=== PATIENT | female | born 1960 | race Caucasian/White ===

== ENCOUNTER 2016-04-28 16:36 | Emergency (ER) | payer BC, OTHER ==
[~2016-04-28] VITALS: Ht 177.8 cm; Wt 106.8 kg
[~2016-04-28 16:36] MED LIST: CLON0.5T3; DULO60CA6; HYDR28.336; METH4TAB PO
--- NOTE | 2016-04-28 17:08 | ED Back Pain ---
General Chief Complaint: Back Problems Stated Complaint: L SIDE BACK PAIN Source of Information: Patient Exam Limitations: No Limitations History of Present Illness Time Seen by Provider: 17:06 Initial Comments Patient complains of left lower back pain radiating down into buttocks and left groin for 2 days. Symptoms wax and wane in severity. They're worse with certain movements. She denies vomiting. She had some hematuria a few days ago. It is described as a dull ache. Incontinence or fevers. No injury. Allergies and Home Medications Allergies Coded Allergies: No Known Drug Allergies (Verified , 05/26/09) Home Medications Hydrocortisone 28.35 Gm Cream.gm. (Reported) Methylprednisolone 4 Mg/Dose-Pack Tab.ds.pk #1 0 PO UD FOR HIVES Prescribed by: ALICIA BROWER on 07/29/09 1057 Constitutional: no symptoms reported Respiratory: no symptoms reported Cardiovascular: no symptoms reported Genitourinary: hematuria pain Musculoskeletal: back pain All Other Systems Reviewed Negative Unless Noted: Yes Past Kvoqemt-Kjxwpl-Wqufmn Hx Patient Social History Alcohol Use: Occasionally Uses Recreational Drug Use: No Smoking Status: Current Everyday Smoker Type Used: Cigarettes Recent Foreign Travel: No Contact w/Someone Who Travel: No Recent Hopitalizations: No Physical Abuse Screen: No Sexual Abuse: No Surgeries HX Surgeries: Yes (GASTRIC BYPASS) Surgeries: Section, Ear Surgery, Gallbladder Respiratory Hx Respiratory Disorders: No Cardiovascular Hx Cardiac Disorders: No Neurological Hx Neurological Disorders: No Reproductive System Hx Reproductive Disorders: No Genitourinary Hx Genitourinary Disorders: No Gastrointestinal Hx Gastrointestinal Disorders: Yes Musculoskeletal Hx Musculoskeletal Disorders: No Endocrine Hx Endocrine Disorders: No HEENT HX ENT Disorders: No Psychosocial Hx Psychiatric Problems: No Blood Transfusions Hx Blood Disorders: No Reviewed Nursing Assessment Reviewed/Agree w Nursing PMH: Yes Physical Exam Vital Signs Vital Sign - Last 12Hours 04/28/16 17:00 Temp 97.6 Pulse 75 Resp 16 B/P 138/74 Pulse Ox 98 O2 Delivery Room Air Capillary Refill : General Appearance: WD/WN Mild Distress Neck: Supple Cardiovascular: Regular Rate, Rhythm Respiratory: Lungs Clear Gastrointestinal: Soft Back: No CVA Tenderness Other (increased pain with left straight leg raise) Extremity: Normal Inspection Neurologic/Psychiatric: Alert No Motor/Sensory Deficits Normal Mood/Affect Skin: Normal Color Warm/Dry Progress/Results/Core Measures Results/Orders Lab Results Urinalysis was noted Laboratory Tests Test 04/28/16 16:58 Range/Units Urine Bacteria FEW H /HPF Urine Bilirubin NEGATIVE NEGATIVE Urine Casts NONE /LPF Urine Clarity CLEAR Urine Color YELLOW Urine Crystals NONE /LPF Urine Culture Indicated YES Urine Glucose (UA) NEGATIVE NEGATIVE Urine Ketones 1+ H NEGATIVE Urine Leukocyte Esterase 2+ H NEGATIVE Urine Mucus SMALL H /LPF Urine Nitrite NEGATIVE NEGATIVE Urine Protein 1+ H NEGATIVE Urine RBC 5-10 H /HPF Urine RBC (Auto) 3+ H NEGATIVE Urine Specific [place] 1.020 1.016-1.022 Urine Squamous Epithelial Cells 10-25 H /HPF Urine Urobilinogen 1 NORMAL MG/DL Urine WBC 5-10 H /HPF Urine pH 5 5-9 My Orders Orders-ZENON WHITLOCK MD Ua Culture If Indicated (04/28/16 16:40) Ketorolac Injection (Toradol Injection) (04/28/16 17:15) Urine Culture (04/28/16 16:58) Medications Given in ED Current Medications Medications Dose Ordered Sig/Daniela Route Start Time Stop Time Status Last Admin Dose Admin Ketorolac Tromethamine 60 mg ONCE ONCE IM 04/28/16 17:15 04/28/16 17:16 DC 04/28/16 17:23 60 MG Vital Signs/I&O Vital Sign - Last 12Hours 04/28/16 17:00 Temp 97.6 Pulse 75 Resp 16 B/P 138/74 Pulse Ox 98 O2 Delivery Room Air Departure Impression Impression: Primary Impression: Back pain Additional Impression: Urinary tract infection Disposition: 01 HOME, SELF-CARE Condition: Stable Departure-Patient Inst. Decision time for Depature: 17:26 Referrals: KAISER WAGNER DO (PCP/Family) Primary Care Physician Patient Instructions: Urinary Tract Infection, Adult (DC) Scripts Ciprofloxacin HCl (Cipro)500 Mg [id number] Mg PO BID #10 TAB Prov:ZENON WHITLOCK MD 04/28/16 Tramadol HCl 50 Mg Tablet1-2 Mg PO Q6H PRN PAIN #15 TAB Prov:ZENON WHITLOCK MD 04/28/16 ZENON WHITLOCK MD Apr 28, 2016 17:08
[2016-04-28 17:10] LABS: KETONES,URINE 1+ (NEGATIVE); LEUKOCYTE ESTERASE ,URINE 2+ (NEGATIVE); NITRITE,URINE NEGATIVE (NEGATIVE); PH,URINE 5 (5-9); PROTEIN,URINE 1+ (NEGATIVE); UROBILINOGEN,URINE 1 MG/DL (NORMAL)
[2016-04-28] MEDS ORDERED: KETOROLAC 60 MG/2 ML VIAL IM ONE (17:15)
[2016-04-28 17:20] LABS: BILIRUBIN,URINE NEGATIVE (NEGATIVE)
[2016-04-28] MEDS ORDERED: CIPR-225 PO (17:29)
[2016-04-28] MEDS ORDERED: TRAM50TA2 PO (17:29)
[2016-04-28 17:33] VITALS: BP 138/74
== END 2016-04-28 17:33 | disposition home or self-care (01) ==
LOC: EDUNIT# 16:36 → ER 16:38
DX: N39.0 Urinary tract infection, site not specified (principal); M54.5 Low back pain; F17.210 Nicotine dependence, cigarettes, uncomplicated
CPT/HCPCS: 81000; 87088; 96372; 99283

== ENCOUNTER 2016-05-04 03:29 | Emergency (ER) | payer BC ==
[~2016-05-04] VITALS: Ht 177.8 cm; Wt 106.8 kg
[~2016-05-04 03:29] MED LIST changes: +CIPR-225 PO; +TRAM50TA2 PO
[2016-05-04 03:48] LABS: BILIRUBIN,URINE NEGATIVE (NEGATIVE); KETONES,URINE NEGATIVE (NEGATIVE); LEUKOCYTE ESTERASE ,URINE 1+ (NEGATIVE); NITRITE,URINE NEGATIVE (NEGATIVE); PH,URINE 5 (5-9); PROTEIN,URINE NEGATIVE (NEGATIVE); UROBILINOGEN,URINE NORMAL (NORMAL)
[2016-05-04 03:56] LABS: WBC,URINE RARE /HPF
[2016-05-04] MEDS ORDERED: LACTATED RINGERS 1,000 ML IV ONE (03:57)
[2016-05-04] MEDS ORDERED: KETOROLAC 30 MG/ML VIAL IVP STA (03:57)
[2016-05-04] MEDS ORDERED: ONDANSETRON 4 MG/2 ML (SDV) Z0FRAN IVP ONE (04:00)
--- NOTE | 2016-05-04 04:09 | ED General ---
General Chief Complaint: General Problems/Pain Stated Complaint: POSS KIDNEY INFECTION Nursing Triage Note: c/o L lower back pain going into abdomen and down L leg patient reports taking 800mg motrin 45 min [employer] and states that is relieving some of the pain Nursing Sepsis Screen: No Definite Risk Source of Information: Patient History of Present Illness Time Seen by Provider: 03:45 Initial Comments C/O LEFT FLANK PAIN, RADIATING TO LLQ AND DOWN LEFT ANTERIOR/LATERAL THIGH SINCE 04/24/16 NO INJURY ANTERIOR LEFT THIGH IS SOMEWHAT NUMB NO MOTOR DEFICITS NO URINARY OR BOWEL DIFFICULTIES--HAD NORMAL BM YESTERDAY HAS HAD SUBJECTIVE FEVER OFF AND ON C/O NAUSEA, NO VOMITING PAIN IS WORSE WITH MOVEMENTS OR SITTING, IS BETTER WITH STANDING NO HISTORY OF SIMILAR PT WAS SEEN HERE 04/28/16 FOR THIS PROBLEM--WAS DX WITH UTI AND GIVEN RX FOR CIPRO AND TRAMADOL. STATES SHE HAS FINISHED THEM AND WAS SLIGHTLY BETTER, BUT THEN SYMPTOMS HAVE PROGRESSIVELY GOTTEN WORSE SINCE Tuesday05/02/16 TOOK A TYLENOL AT 2030 AND IBUPROFEN 800 MG JUST PRIOR TO ARRIVAL PCP: DR. WAGNER Allergies and Home Medications Allergies Coded Allergies: No Known Drug Allergies (Verified , 05/26/09) Home Medications Cyclobenzaprine HCl 10 Mg Tablet #15 10 MG PO Q8H Prescribed by: ALICIA BROWER on 05/04/16 050 Methylprednisolone 4 Mg Tab.ds.pk #1 4 MG PO UD Prescribed by: ALICIA BROWER on 05/04/16 050 Nitrofurantoin Monohyd/M-Cryst 100 Mg Capsule #20 100 MG PO BID Prescribed by: ALICIA BROWER on 05/04/16 050 Tramadol HCl 50 Mg Tablet #20 50 MG PO Q4H Prescribed by: ALICIA BROWER on 05/04/16 050 Constitutional: see HPI fever malaise EENTM: no symptoms reported Respiratory: no symptoms reported Cardiovascular: no symptoms reported Gastrointestinal: LLQ see HPI abdominal painNo constipation, No diarrhea, nauseaNo vomiting Genitourinary: see HPI (LEFT FLANK PAOIN ) Musculoskeletal: see HPI back pain Skin: no symptoms reported Psychiatric/Neurological: See HPI Numbness Paresthesia Past Ppfwkoi-Aumnop-Brlrpi Hx Patient Social History Alcohol Use: Occasionally Uses Recreational Drug Use: No Smoking Status: Current Everyday Smoker (1 PPD) Type Used: Cigarettes Recent Foreign Travel: No Contact w/Someone Who Travel: No Recent Infectious Disease Expo: No Recent Hopitalizations: No Physical Abuse Screen: No Sexual Abuse: No Surgeries HX Surgeries: Yes (GASTRIC BYPASS; MULTIPLE EAR SURGERIES) Surgeries: Abdominal, Section, Ear Surgery, Gallbladder, Tubal Ligation Respiratory Hx Respiratory Disorders: No Cardiovascular Hx Cardiac Disorders: No Neurological Hx Neurological Disorders: No Reproductive System Hx Reproductive Disorders: No Genitourinary Hx Genitourinary Disorders: No Gastrointestinal Hx Gastrointestinal Disorders: Yes (GASTRIC BYPASS; CHOLECYSTECTOMY) Musculoskeletal Hx Musculoskeletal Disorders: No Endocrine Hx Endocrine Disorders: No HEENT HX ENT Disorders: Yes (MULTIPLE EAR SURERIES FOR CHRONIC EAR INFECTIONS; 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) HEENT Disorders: Chronic Ear Infection Hearing Impairment: Hard of Hearing, Deaf Cancer Hx Cancer: No Psychosocial Hx Psychiatric Problems: No Integumentary HX Skin/Integumentary Disorder: No Blood Transfusions Hx Blood Disorders: No Physical Exam Vital Signs Vital Sign - Last 12Hours 05/04/16 03:36 Temp 97.8 Pulse 72 Resp 20 B/P 127/79 Pulse Ox 98 O2 Delivery Room Air Capillary Refill : Less Than 3 Seconds General Appearance: No Apparent Distress WD/WN Other (REEKS OF CIGARETTES) HEENT: PERRL/EOMI Neck: Full Range of Motion Normal Inspection Non Tender Supple Respiratory: Normal Breath Sounds No Accessory Muscle Use No Respiratory Distress Cardiovascular: Regular Rate, Rhythm No Edema No JVD No Murmur Normal Peripheral Pulses Gastrointestinal: Normal Bowel Sounds No Organomegaly No Pulsatile Mass Soft Tenderness Back: CVA Tenderness (L) Other (TENDERNESS TO RIGHT FLANK AND ILIAC AREA. DTR' S INTACT. NEGATIVE STRAIGHT LEG RAISING TEST BILATERALLY) Extremity: Normal Capillary Refill Normal Inspection Normal Range of Motion Non Tender No Calf Tenderness No Pedal Edema Neurologic/Psychiatric: Alert Oriented x3 No Motor/Sensory Deficits Normal Mood/Affect billet header II-XII Norm as Tested Skin: Normal Color Warm/DryNo Rash Progress/Results/Core Measures Results/Orders Lab Results Laboratory Tests Test 05/04/16 03:40 05/04/16 04:35 Range/Units Urine Bacteria NEGATIVE /HPF Urine Bilirubin NEGATIVE NEGATIVE Urine Casts NONE /LPF Urine Clarity CLEAR Urine Color YELLOW Urine Crystals NONE /LPF Urine Culture Indicated NO Urine Glucose (UA) NEGATIVE NEGATIVE Urine Ketones NEGATIVE NEGATIVE Urine Leukocyte Esterase 1+ H NEGATIVE Urine Mucus MODERATE H /LPF Urine Nitrite NEGATIVE NEGATIVE Urine Protein NEGATIVE NEGATIVE Urine RBC RARE /HPF Urine RBC (Auto) 2+ H NEGATIVE Urine Specific [place] 1.020 1.016-1.022 Urine Squamous Epithelial Cells 10-25 H /HPF Urine Urobilinogen NORMAL NORMAL MG/DL Urine WBC RARE /HPF Urine pH 5 5-9 Alanine Aminotransferase (ALT/SGPT) 16 0-55 U/L Albumin 4.0 3.2-4.5 G/DL Alkaline Phosphatase 69 40-136 U/L Amylase Level 67 25-125 U/L Anion Gap 10 5-14 MMOL/L Aspartate Amino Transf (AST/SGOT) 16 5-34 U/L BUN/Creatinine Ratio 16 Basophils # (Auto) 0.0 0.0-0.1 10^3/uL Basophils (%) (Auto) 0 0-10 % Blood Urea Nitrogen 13 7-18 MG/DL Calcium Level 9.2 8.5-10.1 MG/DL Carbon Dioxide Level 21 21-32 MMOL/L Chloride Level 110 H 98-107 MMOL/L Creatinine 0.83 0.60-1.30 MG/DL Eosinophils # (Auto) 0.4 H 0.0-0.3 10^3/uL Eosinophils (%) (Auto) 8 0-10 % Estimat Glomerular Filtration Rate > 60 Glucose Level 88 70-105 MG/DL Hematocrit 44 35-52 % Hemoglobin 14.7 11.5-16.0 G/DL Lipase 34 8-78 U/L Lymphocytes # (Auto) 1.9 1.0-4.0 X 10^3 Lymphocytes (%) (Auto) 37 12-44 % Mean Corpuscular Hemoglobin 30 25-34 PG Mean Corpuscular Hemoglobin Concent 34 32-36 G/DL Mean Corpuscular Volume 89 80-99 FL Mean Platelet Volume 9.4 7.4-10.4 FL Monocytes # (Auto) 0.3 0.0-1.0 X 10^3 Monocytes (%) (Auto) 7 0-12 % Neutrophils # (Auto) 2.4 1.8-7.8 X 10^3 Neutrophils (%) (Auto) 48 42-75 % Platelet Count 225 130-400 10^3/uL Potassium Level 4.2 3.6-5.0 MMOL/L Red Blood Count 4.91 4.35-5.85 10^6/uL Red Cell Distribution Width 14.0 10.0-14.5 % Sodium Level 141 135-145 MMOL/L Total Bilirubin 0.5 0.1-1.0 MG/DL Total Protein 7.1 6.4-8.2 G/DL White Blood Count 5.1 4.3-11.0 10^3/uL My Orders Orders-INOCENTEALICIA Zach DO Ua Culture If Indicated (05/04/16 03:39) Saline Lock/Iv-Start (05/04/16 03:57) Ct Abd/Pelvis Wo(Kidney Stone) (05/04/16 03:57) Ct Lumbar Spine Wo (05/04/16 03:57) Amylase (05/04/16 03:57) Cbc With Automated Diff (05/04/16 03:57) Comprehensive Metabolic Panel (05/04/16 03:57) Lipase (05/04/16 03:57) Acute Abd Series (05/04/16 03:57) Saline Lock/Iv-Start (05/04/16 03:57) Lactated Ringers (Lr 1000 Ml Iv Solution (05/04/16 03:57) Ketorolac Injection (Toradol Injection) (05/04/16 03:57) Ondansetron Injection (Zofran Injectio (05/04/16 04:00) Rx-Tramadol Hcl (Rx-Ultram) (05/04/16 05:10) Rx-Cyclobenzaprine Tablet (Rx-Flexeril T (05/04/16 05:10) Medications Given in ED Current Medications Medications Dose Ordered Sig/Daniela Route Start Time Stop Time Status Last Admin Dose Admin Lactated Ringer's 1,000 ml @ 0 mls/hr Q0M ONCE IV 05/04/16 03:57 05/04/16 04:00 DC 05/04/16 04:32 0 MLS/HR Ondansetron HCl 4 mg ONCE ONCE IVP 05/04/16 04:00 05/04/16 04:01 DC 05/04/16 04:33 4 MG Vital Signs/I&O Vital Sign - Last 12Hours 05/04/16 03:36 Temp 97.8 Pulse 72 Resp 20 B/P 127/79 Pulse Ox 98 O2 Delivery Room Air Blood Pressure Mean: 95 Progress Note : Progress Note PAIN EASED WITH TORADOL Diagnostic Imaging Comments ACUTE ABDOMEN XRAYS--NO ACUTE PROCESS, PENDING RADIOLOGIST REVIEW CT ABDOMEN/PELVIS--NO ACUTE PROCESS, INCIDENTAL FINDINGS--PER STAT RAD VIA FAX @ 0448 CT LUMBAR SPINE--SPONDYLOSIS MOST PRONOUNCED AT L3-L4 AND L4-L5 WITH MODERATE/ LARGE DIFFUSE DISC BULGES. NO HIGH GRADE CANAL STENOSIS IS PRESENT, BUT MODERATE /SEVERE NEUROFORAMINAL NARROWING IS PRESENT BILATERALLY. AT L3-4 AND ON RIGHT AT L4-L5. MODERATE LEFT FORAMINAL STENOSIS AT L4-L5. PER STAT RAD VIA FAX @ 7610 Reviewed: Reviewed by Me Departure Impression Impression: Primary Impression: LOWER BACK PAIN WITH LEFT SCIATICA/RADICULOPATHY Additional Impressions: Bulging discs UTI (urinary tract infection) Disposition: HOME, SELF-CARE Condition: Stable Departure-Patient Inst. Referrals: KAISER WAGNER DO (PCP/Family) Primary Care Physician Patient Instructions: Low Back Pain in Adults, Sciatica (DC), Sciatica Exercises, Urinary Tract Infection, Adult (DC) Add. Discharge Instructions: MOIST HEAT TO BACK AT 20 MINUTE INTERVALS--CONCHA ALTERNATE WITH ICE EVERY 20 MINUTES NO TWISTING OR BENDING AT WAIST, NO LIFTING OVER 10 LBS X 1 WEEK FOLLOW UP WITH DR. WAGNER THIS WEEK FOR FURTHER CARE All discharge instructions reviewed with patient and/or family. Voiced understanding. Scripts Tramadol HCl (Ultram)50 Mg [id number] Mg PO Q4H #20 TAB Prov:ALICIA BROWER DO 05/04/16 Cyclobenzaprine HCl 10 Mg [id number] Mg PO Q8H #15 TAB Prov:ALICIA BROWER DO 05/04/16 Methylprednisolone (Medrol)4 Mg Tab.ds.pk4 Mg PO UD #1 PKG Prov:ALICIA BROWER DO 05/04/16 Nitrofurantoin Monohyd/M-Cryst (Macrobid 100 mg Capsule)100 Mg [id number] Mg PO BID #20 CAP Prov:ALICIA BROWER DO 05/04/16 Work/School Note: Work Release Form Date Seen in the Emergency Department: May 04, 2016 Return to Work: May 07, 2016 Restrictions: Need Release from Doctor ALICIA BROWER DO May 04, 2016 04:09
[2016-05-04 04:42] LABS: BASOPHILS % (AUTO) 0 % (0-10); EOSINOPHILS # (AUTO) 0.4 10^3/uL (0.0-0.3); EOSINOPHILS % (AUTO) 8 % (0-10); LYMPHOCYTES # (AUTO) 1.9 X 10^3 (1.0-4.0); LYMPHOCYTES % (AUTO) 37 % (12-44); MEAN CORPUSCULAR HEMOGLOBIN 30 PG (25-34); MEAN CORPUSCULAR HGB CONC 34 G/DL (32-36); MEAN CORPUSCULAR VOLUME 89 FL (80-99); MEAN PLATELET VOLUME 9.4 FL (7.4-10.4); MONOCYTES # (AUTO) 0.3 X 10^3 (0.0-1.0); MONOCYTES % (AUTO) 7 % (0-12); NEUTROPHILS # (AUTO) 2.4 X 10^3 (1.8-7.8); NEUTROPHILS % (AUTO) 48 % (42-75); PLATELET COUNT 225 10^3/uL (130-400); RED BLOOD COUNT 4.91 10^6/uL (4.35-5.85); WHITE BLOOD COUNT 5.1 10^3/uL (4.3-11.0)
[2016-05-04 05:05] LABS: ALANINE AMINOTRANSFERASE 16 U/L (0-55); AMYLASE 67 U/L (25-125); ANION GAP 10 MMOL/L (5-14); ASPARTATE AMINO TRANSFERASE 16 U/L (5-34); BILIRUBIN,TOTAL 0.5 MG/DL (0.1-1.0); BLOOD UREA NITROGEN 13 MG/DL (7-18); BUN/CREATININE RATIO 16; CALCIUM 9.2 MG/DL (8.5-10.1); CARBON DIOXIDE 21 MMOL/L (21-32); CHLORIDE 110 MMOL/L (98-107); CREATININE SERUM 0.83 MG/DL (0.60-1.30); GFR ESTIMATED > 60; GLUCOSE 88 MG/DL (70-105); LIPASE 34 U/L (8-78); POTASSIUM 4.2 MMOL/L (3.6-5.0); SODIUM 141 MMOL/L (135-145); TOTAL PROTEIN 7.1 G/DL (6.4-8.2)
[2016-05-04] MEDS ORDERED: TRAM-42 PO (05:09)
[2016-05-04] MEDS ORDERED: METH4TAB PO (05:09)
[2016-05-04] MEDS ORDERED: NITR-65 PO (05:09)
[2016-05-04] MEDS ORDERED: CYCL10TA9 PO (05:09)
[2016-05-04] MEDS ORDERED: RX-TRAMADOL 50 MG (ULTRAM) TAB PPK#4 PO STA (05:10)
[2016-05-04] MEDS ORDERED: RX-CYCLOBENZAPRINE 10 MG (FLEXERIL) TAB PPK#3 PO STA (05:10)
[2016-05-04 05:14] VITALS: BP 122/78
--- NOTE | 2016-05-04 08:16 | Diagnostic Imaging Report ---
INDICATION: Low back pain and flank pain. CT of the abdomen and pelvis obtained without IV contrast. There are no previous studies for comparison. FINDINGS: Visualized portions of the lung bases are unremarkable. There is no pleural fluid. There is no free intraperitoneal air. The liver shows no focal lesions. Patient has had previous cholecystectomy. The spleen, adrenals, and pancreas appear unremarkable. Kidneys bilaterally show no radiopaque calculi or hydronephrosis. There is no retroperitoneal mass or adenopathy. There is no ascites or abnormal fluid collection. There are surgical clips in the region of the appendix. There is no pelvic mass or free fluid or adnexal lesion. There are phleboliths in the left side of the pelvis. Patient has had previous gastric surgery. There is a small hiatal hernia. IMPRESSION: No acute abnormality visualized in the abdomen or pelvis. No urinary tract stone or hydronephrosis or mass lesion. Postoperative findings as above. See separate dictation for CT lumbar spine. Dictated by: Dictated on workstation # [id number]
--- NOTE | 2016-05-04 08:23 | Diagnostic Imaging Report ---
Acute abdominal series. INDICATION: Pain FINDINGS: PA chest demonstrates no focal infiltrate. The heart size is normal. No effusion or pneumothorax. Upright and supine views of the abdomen demonstrate no pneumoperitoneum and no dilated bowel loops. There are surgical sutures seen in the upper left abdomen and surgical clips in the upper right abdomen. Moderate amount of fecal material in the colon is noted. There is no definite urinary tract stone identified. There is mild scoliotic curvature of the spine convex to the right in the lower thoracic level with mild compensatory curve convexed to the left in the lumbar spine. IMPRESSION: No acute process. Dictated by: Dictated on workstation # [id number]
--- NOTE | 2016-05-04 08:26 | Diagnostic Imaging Report ---
PROCEDURE: CT lumbar spine without contrast. TECHNIQUE: Multiple contiguous axial images were obtained through the lumbar spine without the use of intravenous contrast. Sagittal and coronal reformations were then performed. INDICATION: Low back pain. FINDINGS: There is a mild left convexity scoliotic curvature of the lumbar spine centered around L3/L4 level. The alignment of the posterior spinal line is satisfactory. The vertebral body heights are preserved. There is no pars defect or fracture at any level. There is no significant disc height loss. There is suggestion of disc herniations at L3/L4 and L4/L5 levels and there is associated facet joint arthropathy in the lower lumbar spine. There is suggestion of associated nsoq-gk-myvhmacv lateral recess stenosis at the these 2 levels. This is, however, better assessed by MRI if needed. There is bilateral mild foraminal narrowing at L3/L4 and L4/L5. IMPRESSION: Mild left convexity scoliosis. Disc herniations and facet arthropathy most prominent at L3/L4 and L4/L5 levels. Dictated by: Dictated on workstation # [id number]
== END 2016-05-04 05:14 | disposition home or self-care (01) ==
LOC: EDUNIT# 03:29 → ER 03:31
DX: M47.816 Spondylosis without myelopathy or radiculopathy, lumbar region (principal); M51.26 Other intervertebral disc displacement, lumbar region; M48.06 Spinal stenosis, lumbar region; F17.210 Nicotine dependence, cigarettes, uncomplicated
CPT/HCPCS: 36415; 72131; 74022; 74176; 80053; 81000; 82150; 83690; 85025; 96374; 96375

== ENCOUNTER 2016-05-21 09:54 | Outpatient (CLI) | payer BC ==
[~2016-05-21] VITALS: Ht 177.8 cm; Wt 106.8 kg
[~2016-05-21 09:54] MED LIST changes: +CYCL10TA9 PO; +NITR-65 PO; +TRAM-42 PO
--- OUTSIDE RECORDS SUMMARY | 2016-05-21 09:57 | XMS REPORT | Continuity of Care Document ---
Author Author [facility] Organization [facility] Address Unknown Phone Unavailable Care Team Providers Care Machine Cloth Measurer Name Role Phone KAIESR WAGNER DO PCP Insurance Providers Payer Name Policy Number [id number] Jia Sarabia [facility] Self / Same As Patient Advance Directives Directive Response Recorded Date/Time Advance Directives No 05/04/16 3:36am Health Care Power of Screwdown Operator No 05/04/16 3:36am Organ Donor No 05/04/16 3:36am Resuscitation Status Full Code 05/04/16 3:36am Chief Complaint and Reason for Visit Chief Complaint General Problems/Pain Reason for Visit [id number] LOWER BACK PAIN WITH LEFT SCIATICA/RADICULOPATHY Problems Active Problems Medical Problem Onset Date Status Back pain Unknown Acute Bulging discs Unknown Acute UTI (urinary tract infection) Unknown Acute Urinary tract infection Unknown Acute Medications Current Home Medications Medication Dose Units Route Directions Days/Qty Instructions Start Date Nitrofurantoin Monohyd/M-Cryst 100 Mg 100 Mg Oral Twice A Day 20 05/04 Methylprednisolone 4 Mg 4 Mg Oral As Directed 1 05/04/16 Cyclobenzaprine Hcl 10 Mg 10 Mg Oral Every 8HRS 15 05/04/16 Tramadol Hcl 50 Mg 50 Mg Oral Every 4HRS 20 05/04/16 Past Home Medications Medication Directions Ordered Status Duloxetine Hcl 60 Mg Capsule., 05/25/09 Discontinued Clonazepam 0.5 Mg Tablet, 05/25/09 Discontinued Hydrocortisone 28.35 Gm Cream.gm., 07/29/09 Discontinued Methylprednisolone 4 Mg/Dose-Pack Tab.ds.pk, 0 Oral As Directed 07/29/09 Discontinued Tramadol Hcl 50 Mg Tablet, 1-2 Mg Oral Every 6 Hours as needed for Pain 04/28 Discontinued Ciprofloxacin Hcl 500 Mg Tablet, 500 Mg Oral Twice A Day 04/28/16 Discontinued Social History Social History Problem Response Recorded Date/Time Alcohol Use Occasionally Uses 05/04/2016 3:36am Recreational Drug Use No 05/04/2016 3:36am Recent Foreign Travel No 05/04/2016 3:36am Recent Infectious Disease Exposure No 05/04/2016 3:36am Hospitalization with Isolation Denies 05/04/2016 3:36am Smoking Status Current Everyday Smoker 05/04/2016 4:22am Type Used Cigarettes 05/04/2016 3:36am Recent Hopitalizations No 05/04/2016 3:36am Hospitalization with Isolation Denies 05/04/2016 3:36am Query Response Start Date Stop Date Smoking Status Current Everyday Smoker Hospital Discharge Instructions No hospital discharge instructions. Plan of Care Discharge Date 05/04/16 5:14am Disposition 01 HOME, SELF-CARE Condition at Discharge Stable Instructions/Education Provided Low Back Pain in Adults Sciatica (DC) Urinary Tract Infection, Adult (DC) Sciatica Exercises Forms Provided Work Release Form Prescriptions See Medication Section Referrals KAISER WAGNER DO - Primary Care Physician Additional Instructions/Education MOIST HEAT TO BACK AT 20 MINUTE INTERVALS-- CONCHA ALTERNATE WITH ICE EVERY 20 MINUTES NO TWISTING OR BENDING AT WAIST, NO LIFTING OVER 10 LBS X 1 WEEK FOLLOW UP WITH DR. WAGNER THIS WEEK FOR FURTHER CARE All discharge instructions reviewed with patient and/or family. Voiced understanding. Functional Status No functional status results. Allergies, Adverse Reactions, Alerts No known allergies. Immunizations No immunization records. Vital Signs Acute Vital Signs Vital Response Date/Time Temperature (Fahrenheit) 97.8 degrees F (97.6 - 99.5) 05/04/2016 3:36am Temperature (Calculated Celsius) 36.86526 degrees C (36.4 - 37.5) 05/04/2016 3:36am Temperature Source Temporal 05/04/2016 3:36am Pulse Rate (adult) 72 bpm (60 - 90) 05/04/2016 3:36am Respiratory Rate 20 bpm (12 - 24) 05/04/2016 3:36am O2 Sat by Pulse Oximetry 98 % (88 - 100) 05/04/2016 3:36am Blood Pressure 127/79 mm Hg 05/04/2016 3:36am Blood Pressure Mean 95 mm Hg 05/04/2016 3:36am Pain Numeric Pain Scale 9 05/04/2016 3:41am Height (Feet) 5 feet 05/04/2016 3:36am Height (Inches) 10 inches 05/04/2016 3:36am Height (Calculated Centimeters) 177.756402 cm 05/04/2016 3:36am Weight (Pounds) 235 pounds 05/04/2016 3:36am Weight (Ounces) 6.4 oz 05/04/2016 3:36am Weight (Calculated Grams) 150696.645 gm 05/04/2016 3:36am Weight (Calculated Kilograms) 106.685391 kilograms 05/04/2016 3:36am Capillary Refill Capillary Refill Less Than 3 Seconds 05/04/2016 3:36am Height 5 ft 10 in Weight 235 lb Body Mass Index 33.8 kg/m^2 Results Laboratory Results Test Name Result Units Flags Reference Collection Date/Time Result Date/ Time Comments Urine Color YELLOW 04/28/2016 4:58pm 04/28/2016 5:21pm Urine Clarity CLEAR 04/28/2016 4:58pm 04/28/2016 5:21pm Urine pH 5 5-9 04/28/2016 4:58pm 04/28/2016 5:21pm Urine Specific [place] 1.020 1.016-1.022 04/28/2016 4:58pm 2016 5:21pm Urine Protein 1+ * NEGATIVE 04/28/2016 4:58pm 04/28/2016 5:21pm Urine Glucose (UA) NEGATIVE NEGATIVE 04/28/2016 4:58pm 04/28/2016 5: 21pm Urine RBC (Auto) 3+ * NEGATIVE 04/28/2016 4:58pm 04/28/2016 5:21pm Urine Ketones 1+ * NEGATIVE 04/28/2016 4:58pm 04/28/2016 5:21pm Urine Nitrite NEGATIVE NEGATIVE 04/28/2016 4:58pm 04/28/2016 5:21pm Urine Bilirubin NEGATIVE NEGATIVE 04/28/2016 4:58pm 04/28/2016 5: 21pm Urine Urobilinogen 1 MG/DL NORMAL 04/28/2016 4:58pm 04/28/2016 5:21pm Urine Leukocyte Esterase 2+ * NEGATIVE 04/28/2016 4:58pm 04/28/2016 5: 21pm Urine RBC 5-10 /HPF * 04/28/2016 4:58pm 04/28/2016 5:21pm Urine WBC 5-10 /HPF * 04/28/2016 4:58pm 04/28/2016 5:21pm Urine Bacteria FEW /HPF * 04/28/2016 4:58pm 04/28/2016 5:21pm Urine Squamous Epithelial Cells 10-25 /HPF * 04/28/2016 4:58pm 2016 5:21pm Urine Crystals NONE /LPF 04/28/2016 4:58pm 04/28/2016 5:21pm Urine Casts NONE /LPF 04/28/2016 4:58pm 04/28/2016 5:21pm Urine Mucus SMALL /LPF * 04/28/2016 4:58pm 04/28/2016 5:21pm Urine Culture Indicated YES 04/28/2016 4:58pm 04/28/2016 5:21pm Pending Laboratory Results Test Name Collection Date/Time Procedures No known history of procedures. Encounters Encounter Location Arrival/Admit Date Discharge/Depart Date Attending Provider Departed Emergency Room [facility] 05/04/16 3:31am 05/04 5:14am ALICIA BROWER DO Departed Emergency Room [facility] 04/28/16 4:38pm 04/28 5:33pm ZENON WHITLOCK MD Recent Diagnosis
[2016-05-21] MEDS ORDERED: TRIAMCINOLONE ACET (KENALOG-40) 40 MG/ML 1 ML VIAL ONE (10:19)
[2016-05-21] MEDS ORDERED: BUPIVACAINE 0.25% 30 ML (SENSORCAINE) VIAL ONE (10:19)
[2016-05-21 10:25] VITALS: BP 143/102
[2016-05-21 11:09] VITALS: BP 157/100
--- NOTE | 2016-05-21 12:09 | Pain Medicine-Procedure ---
Procedure Pre-Op/Post-Op Diagnosis Diagnosis: disc disorder with radiculopathy, lumbar Indications for Operation Low back pain Attending Surgeon Burton Procedure Date of Service: May 21, 2016 Procedure: Lumbar Epidural Steroid Injection at the L4-L5 level under Fluoroscopic Guidance Procedure: Patient was identified in the holding area. After risks, benefits, and alternatives were discussed with the patient, informed consent was obtained. Patient was brought to the fluoroscopy suite and placed prone on the procedure room table. A time out was performed. Vital signs were monitored throughout the procedure. The patients low back was prepped and draped in the usual sterile fashion. The patients skin was anesthetized using 2% Lidocaine. A Tuohy needle was inserted and advanced to the L4-L5 epidural space under fluoroscopic guidance using the loss of resistance technique and intermittent projection of fluoroscopy. There was no paresthesia with needle placement. The needle position was confirmed in both the AP and lateral view. After negative aspiration 2ml of contrast was injected under live fluoroscopy which showed good spread of the contrast in the epidural space at the appropriate level, there was no intravascular or subarachnoid spread. Again, after negative aspiration for heme or CSF, 2 ml of 0.25% Bupivicaine, 2ml of preservative free normal saline, and 80mg of Kenalog was injected. The needle was removed and a sterile bandage was placed and the patient was transferred to the recovery area in stable condition. After a brief period of observation, patient was discharged to home with no new neurological deficits and no apparent complications. Complications None AURORA DELUCA MD May 21, 2016 12:09 pm
== END 2016-05-21 11:10 | disposition home or self-care (01) ==
LOC: CARD 09:54
PROVIDERS: ATTEND Pain Medicine Pain Medicine
DX: M51.16 Intervertebral disc disorders with radiculopathy, lumbar region (principal); Z79.899 Other long term (current) drug therapy
CPT/HCPCS: 62323

== ENCOUNTER 2016-06-04 11:54 | Outpatient (CLI) | payer BC ==
[~2016-06-04] VITALS: Ht 175.3 cm; Wt 94.8 kg
--- OUTSIDE RECORDS SUMMARY | 2016-06-04 11:58 | XMS REPORT | Continuity of Care Document ---
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 AWGNER THIS WEEK FOR FURTHER CARE All discharge instructions reviewed with patient and/or family. Voiced understanding. Functional Status No functional status results. Allergies, Adverse Reactions, Alerts No known allergies. Immunizations No immunization records. Vital Signs Acute Vital Signs Vital Response Date/Time Temperature (Fahrenheit) 97.8 degrees F (97.6 - 99.5) 05/04/2016 3:36am Temperature (Calculated Celsius) 36.12736 degrees C (36.4 - 37.5) 05/04/2016 3:36am [...] 10 inches 05/04/2016 3:36am Height (Calculated Centimeters) 177.413903 cm 05/04/2016 3:36am Weight (Pounds) 235 pounds 05/04/2016 3:36am Weight (Ounces) 6.4 oz 05/04/2016 3:36am Weight (Calculated Grams) 300754.645 gm 05/04/2016 3:36am Weight (Calculated Kilograms) 106.803712 kilograms 05/04/2016 3:36am Capillary Refill Capillary Refill [...] 5-9 04/28/2016 4:58pm 04/28/2016 5:21pm Urine Specific [place] 1.020 1.016-1.022 04/28/2016 4:58pm 2016 5:21pm Urine [...] Date Attending Provider Departed Emergency Room [facility] 05/04/16 3:31am 05/04 5:14am ALICIA BROWER DO Departed Emergency Room [facility] 04/28/16 4:38pm 04/28 5:33pm ZENON WHITLOCK MD Recent Diagnosis
[2016-06-04] MEDS ORDERED: BUPIVACAINE 0.25% 30 ML (SENSORCAINE) VIAL ONE (12:03)
[2016-06-04] MEDS ORDERED: TRIAMCINOLONE ACET (KENALOG-40) 40 MG/ML 1 ML VIAL ONE (12:03)
[2016-06-04 12:09] VITALS: BP 138/87
[2016-06-04 12:40] VITALS: BP 155/95
--- NOTE | 2016-06-04 14:10 | Pain Medicine-Procedure ---
Procedure Pre-Op/Post-Op Diagnosis Diagnosis: disc disorder with radiculopathy, lumbar Indications for Operation Low back pain Attending Surgeon Burton Procedure Date of Service: Jun 04, 2016 Procedure: Lumbar Epidural Steroid Injection at the L4-L5 level under Fluoroscopic Guidance Procedure: Patient was identified in the holding area. After risks, benefits, and alternatives were discussed with the patient, informed consent was obtained. Patient was brought to the fluoroscopy suite and placed prone on the procedure room table. A time out was performed. Vital signs were monitored throughout the procedure. The patients low back was prepped and draped in the usual sterile fashion. The patients skin was anesthetized using 2% Lidocaine. A Tuohy needle was inserted and advanced to the L4-L5 epidural space under fluoroscopic guidance using the loss of resistance technique and intermittent projection of fluoroscopy. There was no paresthesia with needle placement. The needle position was confirmed in both the AP and lateral view. After negative aspiration 2ml of contrast was injected under live fluoroscopy which showed good spread of the contrast in the epidural space at the appropriate level, there was no intravascular or subarachnoid spread. Again, after negative aspiration for heme or CSF, 2 ml of 0.25% Bupivicaine, 2ml of preservative free normal saline, and 80mg of Kenalog was injected. The needle was removed and a sterile bandage was placed and the patient was transferred to the recovery area in stable condition. After a brief period of observation, patient was discharged to home with no new neurological deficits and no apparent complications. Complications None AURORA DELUCA MD Jun 04, 2016 2:10 pm
== END 2016-06-04 12:41 | disposition home or self-care (01) ==
LOC: CARD 11:54
PROVIDERS: ATTEND Pain Medicine Pain Medicine
DX: M51.16 Intervertebral disc disorders with radiculopathy, lumbar region (principal); Z79.899 Other long term (current) drug therapy
CPT/HCPCS: 62323

== ENCOUNTER 2018-01-01 19:53 | Emergency (ER) | payer BC ==
[~2018-01-01] VITALS: Ht 175.3 cm; Wt 74.8 kg
--- OUTSIDE RECORDS SUMMARY | 2018-01-01 19:58 | XMS REPORT | Continuity of Care Document ---
Author Author [facility] Address Unknown Phone Unavailable Allergies Active Description Code Type Severity Reaction Onset Reported/Identified Relationship to Patient Clinical Status Yes No Known Drug Allergies [id number] Drug Allergy Unknown N/A 05/26/2009 Medications There is no data. Problems Date Dx Coded Attending Type Code Diagnosis Diagnosed By 04/21/2009 RENEE BURROWS APRN 708.9 URTICARIA/HIVES UNSPEC 04/21/2009 RENEE BURROWS APRN 708.9 URTICARIA/HIVES UNSPEC 04/21/2009 RENEE BURROWS APRN 708.9 URTICARIA/HIVES UNSPEC 04/21/2009 BRENDON THURAMN MD 708.9 URTICARIA/HIVES UNSPEC 06/05/2009 RENEE BURROWS APRN 300.00 ANXIETY UNSPEC 06/05/2009 RENEE BURROWS APRN 300.00 ANXIETY UNSPEC 06/05/2009 RENEE BURROWS APRN 300.00 ANXIETY UNSPEC 06/05/2009 BRENDON THURMAN MD 300.00 ANXIETY UNSPEC 06/01/2011 RENEE BURROWS APRN 382.9 UNSPECIFIED OTITIS MEDIA 06/01/2011 RENEE BURROWS APRN 382.9 UNSPECIFIED OTITIS MEDIA 06/01/2011 RENEE BURROWS APRN 382.9 UNSPECIFIED OTITIS MEDIA 06/01/2011 BRENDON THURMAN MD 382.9 OTITIS MEDIA 06/10/2011 RENEE BURROWS APRN 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 06/10/2011 RENEE BURROWS APRN 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 06/10/2011 RENEE BURROWS APRN 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 06/10/2011 BRENDON THURMAN MD 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 08/18/2011 RENEE BURROWS APRN 782.1 RASH 08/18/2011 RENEE BURROWS APRN 782.1 RASH 08/18/2011 RENEE BURROWS APRN 782.1 RASH 08/18/2011 BRENDON HTURMAN MD 782.1 RASH 09/03/2011 RENEE BURROWS APRN T V58.32 SUTURE REMOVAL 09/03/2011 RENEE BURROWS APRN V58.32 SUTURE REMOVAL 09/03/2011 RENEE BURROWS APRN T V58.32 SUTURE REMOVAL 09/03/2011 BRENDON THURMAN MD V58.32 SUTURE REMOVAL 09/20/2011 RENEE BURROWS APRN T 272.4 HYPERLIPIDEMIA 09/20/2011 RENEE BURROWS APRN T 709.3 DEGENERATIVE SKIN DISORDERS 09/20/2011 RENEE BURROWS APRN T 272.4 HYPERLIPIDEMIA 09/20/2011 RENEE BURROWS APRN T 709.3 DEGENERATIVE SKIN DISORDERS 09/20/2011 RENEE BURROWS APRN T 272.4 HYPERLIPIDEMIA 09/20/2011 RENEE BURROWS APRN T 709.3 DEGENERATIVE SKIN DISORDERS 09/20/2011 BRENDON THURMAN MD 272.4 HYPERLIPIDEMIA 09/20/2011 BRENDON THURMAN MD 709.3 DEGENERATIVE SKIN DISORDERS 03/04/2012 RENEE BURROWS APRN V74.1 TB SCREENING 03/04/2012 RENEE BURROWS APRN V74.1 TB SCREENING 03/04/2012 RENEE BURROWS APRN T V74.1 TB SCREENING 03/04/2012 BRENDON THURMAN MD V74.1 TB SCREENING 04/28/2016 ZENON WHITLOCK MD A Ot F17.210 NICOTINE DEPENDENCE, CIGARETTES, UNCOMPL 04/28/2016 ZENON WHITLOCK MD A Ot M54.5 LOW BACK PAIN 04/28/2016 ZENON WHITLOCK MD A Ot N39.0 URINARY TRACT INFECTION, SITE NOT SPECIF 04/29/2016 TAINA WHITLOCK MDNT A Ot F17.210 NICOTINE DEPENDENCE, CIGARETTES, UNCOMPL 04/29/2016 TAINA WHITLOCK MDNT A Ot M54.5 LOW BACK PAIN 04/29/2016 TAINA WHITLOCK MDNT A Ot N39.0 URINARY TRACT INFECTION, SITE NOT SPECIF 05/04/2016 ZENON WHITLOCK MD A Ot F17.210 NICOTINE DEPENDENCE, CIGARETTES, UNCOMPL 05/04/2016 TAINA WHITLOCK MDNT A Ot M54.5 LOW BACK PAIN 05/04/2016 ZENON WHITLOCK MD A Ot N39.0 URINARY TRACT INFECTION, SITE NOT SPECIF 05/04/2016 ALICIA BROWER DO Ot F17.210 NICOTINE DEPENDENCE, CIGARETTES, UNCOMPL 05/04/2016 INOCENTE ALICIA TONY Ot M47.816 SPONDYLOSIS W/O MYELOPATHY OR RADICULOPA 05/04/2016 ALICIA BROWER DO Ot M48.06 SPINAL STENOSIS, LUMBAR REGION 05/04/2016 INOCENTE ALICIA TONY Ot M51.26 OTHER INTERVERTEBRAL DISC DISPLACEMENT, 05/04/2016 INOCENTE ALICIA TONY Ot M54.5 LOW BACK PAIN 05/06/2016 INOCENTE ALICIA TONY Ot F17.210 NICOTINE DEPENDENCE, CIGARETTES, UNCOMPL 05/06/2016 ALICIA BROWER DO Ot M47.816 SPONDYLOSIS W/O MYELOPATHY OR RADICULOPA 05/06/2016 INOCENTE ALICIA TONY Ot M48.06 SPINAL STENOSIS, LUMBAR REGION 05/06/2016 INOCENTE ALICIA TONY Ot M51.26 OTHER INTERVERTEBRAL DISC DISPLACEMENT, 05/06/2016 INOCENTE ALMA TONYBrissa Serrano Ot M54.5 LOW BACK PAIN 05/21/2016 AURORA DELUCA MD, Ot M51.16 INTERVERTEBRAL DISC DISORDERS W RADICULO 05/21/2016 AURORA DELUCA MD Ot 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 05/26/2016 AURORA DELUCA MD, Ot M51.16 INTERVERTEBRAL DISC DISORDERS W RADICULO 05/26/2016 AURORA DELUCA MD Ot Z79.899 OTHER CARE HOME (CURRENT) DRUG THERAPY 05/28/2016 AURORA DELUCA MD, Ot M51.16 INTERVERTEBRAL DISC DISORDERS W RADICULO 05/28/2016 AURORA DELUCA MD Ot 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 06/04/2016 AURORA DELUCA MD, Ot M51.16 INTERVERTEBRAL DISC DISORDERS W RADICULO 06/04/2016 AURORA DELUCA MD Ot 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 06/16/2016 AURORA DELUCA MD, Ot M51.16 INTERVERTEBRAL DISC DISORDERS W RADICULO 06/16/2016 AURORA DELUCA MD, Ot 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 Procedures Code Description [place] [address] TB TEST INTRADERMAL 03/04/2012 Results Test Result Range Complete urinalysis with reflex to culture - 04/28/16 16:58 Urine color determination YELLOW NRG Urine clarity determination CLEAR NRG Urine pH measurement by test strip 5 5-9 Specific gravity of urine by test strip 1.020 1.016- 1.022 Urine protein assay by test strip, semi-quantitative 1+ NEGATIVE Urine glucose detection by automated test strip NEGATIVE NEGATIVE Erythrocytes detection in urine sediment by light microscopy 3+ NEGATIVE Urine ketones detection by automated test strip 1+ NEGATIVE Urine nitrite detection by test strip NEGATIVE NEGATIVE Urine total bilirubin detection by test strip NEGATIVE NEGATIVE Urine urobilinogen measurement by automated test strip (mass/volume) 1 mg/dL NORMAL Urine leukocyte esterase detection by dipstick 2+ NEGATIVE Automated urine sediment erythrocyte count by microscopy (number/high power field) [HPF] NRG Automated urine sediment leukocyte count by microscopy (number/high power field ) [HPF] NRG Bacteria detection in urine sediment by light microscopy FEW NRG Squamous epithelial cells detection in urine sediment by light microscopy 10-25 NRG Crystals detection in urine sediment by light microscopy NONE NRG Casts detection in urine sediment by light microscopy NONE NRG Mucus detection in urine sediment by light microscopy SMALL NRG Complete urinalysis with reflex to culture YES NRG Bacterial urine culture - 04/28/16 16:58 URINE CULTURE RESULTS MORE THAN 3 ISOLATES NRG Complete urinalysis with reflex to culture - 05/04/16 03:40 Urine color determination YELLOW NRG Urine clarity determination CLEAR NRG Urine pH measurement by test strip 5 5-9 Specific gravity of urine by test strip 1.020 1.016- 1.022 Urine protein assay by test strip, semi-quantitative NEGATIVE NEGATIVE Urine glucose detection by automated test strip NEGATIVE NEGATIVE Erythrocytes detection in urine sediment by light microscopy 2+ NEGATIVE Urine ketones detection by automated test strip NEGATIVE NEGATIVE Urine nitrite detection by test strip NEGATIVE NEGATIVE Urine total bilirubin detection by test strip NEGATIVE NEGATIVE Urine urobilinogen measurement by automated test strip (mass/volume) NORMAL NORMAL Urine leukocyte esterase detection by dipstick 1+ NEGATIVE Automated urine sediment erythrocyte count by microscopy (number/high power field) RARE NRG Automated urine sediment leukocyte count by microscopy (number/high power field ) RARE NRG Bacteria detection in urine sediment by light microscopy NEGATIVE NRG Squamous epithelial cells detection in urine sediment by light microscopy 10-25 NRG Crystals detection in urine sediment by light microscopy NONE NRG Casts detection in urine sediment by light microscopy NONE NRG Mucus detection in urine sediment by light microscopy MODERATE NRG Complete urinalysis with reflex to culture NO NRG Complete blood count (CBC) with automated white blood cell (WBC) differential - 05/04/16 04:35 Blood leukocytes automated count (number/volume) 5.1 10*3/uL 4.3-11.0 Blood erythrocytes automated count (number/volume) 4.91 10*6/uL 4.35-5.85 Venous blood hemoglobin measurement (mass/volume) 14.7 g/dL 11.5-16.0 Blood hematocrit (volume fraction) 44 % 35-52 Automated erythrocyte mean corpuscular volume 89 [foz_us] 80-99 Automated erythrocyte mean corpuscular hemoglobin (mass per erythrocyte) 30 pg 25-34 Automated erythrocyte mean corpuscular hemoglobin concentration measurement ( mass/volume) 34 g/dL 32-36 Automated erythrocyte distribution width ratio 14.0 % 10.0-14.5 Automated blood platelet count (count/volume) 225 10*3/uL 130-400 Automated blood platelet mean volume measurement 9.4 [foz_us] 7.4-10.4 Automated blood neutrophils/100 leukocytes 48 % 42-75 Automated blood lymphocytes/100 leukocytes 37 % 12-44 Blood monocytes/100 leukocytes 7 % 0-12 Automated blood eosinophils/100 leukocytes 8 % 0-10 Automated blood basophils/100 leukocytes 0 % 0-10 Blood neutrophils automated count (number/volume) 2.4 10*3 1.8-7.8 Blood lymphocytes automated count (number/volume) 1.9 10*3 1.0-4.0 Blood monocytes automated count (number/volume) 0.3 10*3 0.0-1.0 Automated eosinophil count 0.4 10*3/uL 0.0-0.3 Automated blood basophil count (count/volume) 0.0 10*3/uL 0.0-0.1 Comprehensive metabolic panel - 05/04/16 04:35 Serum or plasma sodium measurement (moles/volume) 141 mmol/L 135-145 Serum or plasma potassium measurement (moles/volume) 4.2 mmol/L 3.6-5.0 Serum or plasma chloride measurement (moles/volume) 110 mmol/L 98-107 Carbon dioxide 21 mmol/L 21-32 Serum or plasma anion gap determination (moles/volume) 10 mmol/L 5-14 Serum or plasma urea nitrogen measurement (mass/volume) 13 mg/dL 7-18 Serum or plasma creatinine measurement (mass/volume) 0.83 mg/dL 0.60-1.30 Serum or plasma urea nitrogen/creatinine mass ratio 16 NRG Serum or plasma creatinine measurement with calculation of estimated glomerular filtration rate > NRG Serum or plasma glucose measurement (mass/volume) 88 mg/dL 70-105 Serum or plasma calcium measurement (mass/volume) 9.2 mg/dL 8.5-10.1 Serum or plasma total bilirubin measurement (mass/volume) 0.5 mg/dL 0.1-1.0 Serum or plasma alkaline phosphatase measurement (enzymatic activity/volume) 69 U/L 40-136 Serum or plasma aspartate aminotransferase measurement (enzymatic activity/ volume) 16 U/L 5-34 Serum or plasma alanine aminotransferase measurement (enzymatic activity/volume ) 16 U/L 0-55 Serum or plasma protein measurement (mass/volume) 7.1 g/dL 6.4-8.2 Serum or plasma albumin measurement (mass/volume) 4.0 g/dL 3.2-4.5 Serum or plasma amylase measurement (enzymatic activity/volume) - 05/04/16 04: 35 Serum or plasma amylase measurement (enzymatic activity/volume) 67 U /L 25-125 Lipase - 05/04/16 04:35 Lipase 34 U/L 8-78 Encounters ACCT No. Visit Date/Time Discharge Status Pt. Type Provider Facility Loc./Unit Complaint [id number] 06/09/2012 15:58:00 06/09/2012 23:59:59 CLS Outpatient CUCA YANG, BRENDON [id number] 05/17/2012 16:33:00 05/17/2012 23:59:59 CLS Outpatient RENEE BURROWS APRN [id number] 03/04/2012 10:49:00 03/04/2012 23:59:59 CLS Outpatient RENEE BURROWS APRN [id number] 09/20/2011 10:38:00 09/20/2011 23:59:59 CLS Outpatient RENEE BURROWS APRN [id number] 06/04/2016 11:54:00 06/04/2016 12:41:00 DIS Outpatient AURORA DELUCA MD [facility] CARD DISC DISORDER W/ RADICULOPATHY,LUMBAR [id number] 05/21/2016 09:54:00 05/21/2016 11:10:00 DIS Outpatient AURORA DELUCA MD [facility] CARD M51.16 [id number] 05/04/2016 03:31:00 05/04/2016 05:14:00 DIS Emergency ALICIA BROWER DO [facility] ER POSS KIDNEY INFECTION [id number] 04/28/2016 16:38:00 04/28/2016 17:33:00 DIS Emergency KAMLESH YANG, ZENON [place] [facility] ER L SIDE BACK PAIN
[2018-01-01] MEDS ORDERED: NS IV 1000 ML 1,000 ML IV SCH (20:12)
[2018-01-01] MEDS ORDERED: ASPIRIN 81 MG CHEW (CHILDREN'S ASA) PO ONE (20:15)
[2018-01-01] MEDS ORDERED: hydrOXYzine (VISTARIL) 25 MG CAP PO ONE (20:15)
--- NOTE | 2018-01-01 20:16 | ED Neurological Problem ---
General Stated Complaint: FACE WENT NUMB, TINGLING ALL OVER Source: patient Exam Limitations: no limitations History of Present Illness Date Seen by Provider: Jan 01, 2018 Time Seen by Provider: 20:00 Initial Comments Patient presents to ER by private conveyance with some perioral numbness/ tingling and left arm numbness and tingling and paresthesias that started about 1900, one hour prior to arrival. She's not having any pain anywhere. She does have a history of anxiety attacks with panic disorder. She's also for the past week been having a cold and flu-like symptoms with runny nose, nasal congestion , cough is nonproductive. She has no primary coronary artery disease or family history of coronary artery disease. She does not have diabetes hypercholesterol hypertension or hypothyroidism. She does smoke about a pack cigarettes a day. She's not having any chest pain except under her right ribs from coughing fits. She does not member hurting her neck. She's not having any wasting or muscle weakness or numbness just unusual pins and needle sensation in her arm and around her Mouth both sides. No rash burning or itching. She says she's felt like some subjective fevers lately off and on. Allergies and Home Medications Allergies Coded Allergies: No Known Drug Allergies (Verified , 05/26/09) Home Medications Cyclobenzaprine HCl 10 Mg Tablet, 10 MG PO Q8H Prescribed by: ALICIA BROWER on 05/04/16508 Methylprednisolone 4 Mg Tab.ds.pk, 4 MG PO UD Prescribed by: ALICIA BROWER on 05/04/16508 Nitrofurantoin Monohyd/M-Cryst 100 Mg Capsule, 100 MG PO BID Prescribed by: ALICIA BROWER on 05/04/16508 Tramadol HCl 50 Mg Tablet, 50 MG PO Q4H Prescribed by: ALICIA BROWER on 05/04/16508 Patient Home Medication List Home Medication List Reviewed: Yes Review of Systems Review of Systems Constitutional: No chills, No diaphoresis Eyes: Denies Blindness, Denies Drainage, Denies Photophobia Ears, Nose, Mouth, Throat: denies ear pain, denies ear discharge; nose discharge Respiratory: cough; No dyspnea on exertion, No short of breath, No stridor, No wheezing Cardiovascular: No chest pain, No edema, No Hx of Intervention, No palpitations , No syncope, No vascular heart diseas Gastrointestinal: No abdominal pain, No constipation, No diarrhea, No nausea Genitourinary: No discharge, No dysuria Musculoskeletal: No back pain, No joint pain, No neck pain Skin: No pruritus, No rash Psychiatric/Neurological: See HPI, Anxiety, Tingling Past Rwvjlis-Akcord-Ohtvej Hx Patient Social History Alcohol Use: Denies Use Recreational Drug Use: No Smoking Status: Current Everyday Smoker Type Used: Cigarettes (1 ppd) Recent Foreign Travel: No Contact w/Someone Who Travel: No Recent Hopitalizations: No Past Medical History Abdominal, Section, Ear Surgery, Gallbladder, Tubal Ligation Reproductive Disorders: No Chronic Ear Infection Hearing Impairment: Hard of Hearing, Deaf Physical Exam Vital Signs Vital Signs - First Documented 01/01/18 19:53 Temp 96.6 Pulse 90 Resp 9 B/P (MAP) 135/81 (99) Pulse Ox 97 O2 Delivery Room Air Capillary Refill : Height, Weight, BMI Height: 5'9.00" Weight: 209lbs. 0.0oz. 94.192735av; 30.9 BMI Method:Stated General Appearance: WD/WN, no apparent distress HEENT: PERRL/EOMI, normal ENT inspection, TMs normal, pharynx normal Neck: non-tender, full range of motion, supple, normal inspection Respiratory: chest non-tender, lungs clear, normal breath sounds, no respiratory distress, no accessory muscle use Cardiovascular: normal peripheral pulses, regular rate, rhythm, no edema Peripheral Pulses: 2+ Radial Pulses (R), 2+ Radial Pulses (L) Back: normal inspection, no vertebral tenderness Extremities: normal range of motion, no pedal edema, normal capillary refill Neurologic/Psychiatric: food editor II-XII nml as tested, no motor/sensory deficits, alert, normal mood/affect, oriented x 3 Crainal Nerves: normal hearing (Congenital left ear deafness), normal speech, PERRL Coordination/Gait: normal finger to nose, normal gait Motor/Sensory: no motor deficit, no sensory deficit, no pronator drift Skin: normal color, warm/dry Musculoskeletal: Her neck is mild tenderness to palpation left lateral but does not re-create her paresthesias. Stroke NIH Stroke Scale Assessment Select: Initial Level of Consciousness: 0=Alert (0), Level of Consciousness- Questions: 0=Answers both month/age (0), LOC Commands: 0=Performs both tasks (0) , Gaze: Normal (0), Visual Mascorro: 0=No visual loss (0), Facial Movement ( Facial Paresis): 0=Normal symmetrical mnt (0), Motor Function-Arms Right: 0=No drift (0), Motor Function-Arms Left: 0=No drift (0), Motor Function-Legs Right: 0=No drift (0), Motor Function-Legs Left: 0=No drift (0), Limb Ataxia: 0=Absent (0), Sensory: 0=Normal:no loss (0), Best Language: 0=No aphasia (0), Dysarthria : 0=Normal (0), Extinction & Inattention: 0=No abnormality (0), Total: 0 IV - TPa Received IV - TPa Procedure Performed?: No Progress/Results/Core Measures Results/Orders Lab Results Laboratory Tests Test 01/01/18 19:58 01/01/18 20:19 01/01/18 21:15 Range/Units Glucometer 99 70-110 MG/DL White Blood Count 9.0 4.3-11.0 10^3/uL Red Blood Count 4.30 L 4.35-5.85 10^6/uL Hemoglobin 13.1 11.5-16.0 G/DL Hematocrit 37 35-52 % Mean Corpuscular Volume 85 80-99 FL Mean Corpuscular Hemoglobin 31 25-34 PG Mean Corpuscular Hemoglobin Concent 36 32-36 G/DL Red Cell Distribution Width 13.9 10.0-14.5 % Platelet Count 262 130-400 10^3/uL Mean Platelet Volume 9.1 7.4-10.4 FL Neutrophils (%) (Auto) 62 42-75 % Lymphocytes (%) (Auto) 29 12-44 % Monocytes (%) (Auto) 7 0-12 % Eosinophils (%) (Auto) 2 0-10 % Basophils (%) (Auto) 0 0-10 % Neutrophils # (Auto) 5.6 1.8-7.8 X 10^3 Lymphocytes # (Auto) 2.6 1.0-4.0 X 10^3 Monocytes # (Auto) 0.6 0.0-1.0 X 10^3 Eosinophils # (Auto) 0.2 0.0-0.3 10^3/uL Basophils # (Auto) 0.0 0.0-0.1 10^3/uL Prothrombin Time 12.8 12.2-14.7 SEC INR Comment 1.0 0.8-1.4 Activated Partial Thromboplast Time 32 24-35 SEC Sodium Level 136 135-145 MMOL/L Potassium Level 4.1 3.6-5.0 MMOL/L Chloride Level 103 98-107 MMOL/L Carbon Dioxide Level 23 21-32 MMOL/L Anion Gap 10 5-14 MMOL/L Blood Urea Nitrogen 9 7-18 MG/DL Creatinine 0.73 0.60-1.30 MG/DL Estimat Glomerular Filtration Rate > 60 BUN/Creatinine Ratio 12 Glucose Level 97 70-105 MG/DL Calcium Level 9.3 8.5-10.1 MG/DL Corrected Calcium 9.5 8.5-10.1 MG/DL Magnesium Level 2.2 1.8-2.4 MG/DL Total Bilirubin 0.5 0.1-1.0 MG/DL Aspartate Amino Transf (AST/SGOT) 12 5-34 U/L Alanine Aminotransferase (ALT/SGPT) 9 0-55 U/L Alkaline Phosphatase 71 40-136 U/L Myoglobin 25.6 10.0-92.0 NG/ML Troponin I < 0.30 < 0.30 <0.30 NG/ML Total Protein 7.0 6.4-8.2 GM/DL Albumin 3.8 3.2-4.5 GM/DL My Orders Orders - SOHAM,PERLA J Cbc With Automated Diff (01/01/18 20:12) Magnesium (01/01/18 20:12) Cardiac Profile 1 (01/01/18 20:12) Comprehensive Metabolic Panel (01/01/18 20:12) Myoglobin Serum (01/01/18 20:12) Protime With Inr (01/01/18 20:12) Partial Thromboplastin Time (01/01/18 20:12) O2 (01/01/18 20:12) Monitor-Rhythm Ecg Trace Only (01/01/18 20:12) Lipid Panel (01/02/18 06:00) Aspirin Chewable Tablet (Baby Aspirin Ch (01/01/18 20:15) Saline Lock/Iv-Start (01/01/18 20:12) Hydroxyzine Oral (Vistaril Capsule) (01/01/18 20:15) Ekg Tracing (01/01/18 20:12) Saline Lock/Iv-Start (01/01/18 20:12) Ns Iv 1000 Ml (Sodium Chloride 0.9%) (01/01/18 20:12) Chest Pa/Lat (2 View) (01/01/18 20:16) Troponin I (01/01/18 21:10) Medications Given in ED Current Medications Medications Dose Ordered Sig/Daniela Route Start Time Stop Time Status Last Admin Dose Admin Aspirin 324 mg ONCE ONCE PO 01/01/18 20:15 01/01/18 20:16 DC 01/01/18 20:35 324 MG Hydroxyzine Pamoate 25 mg ONCE ONCE PO 01/01/18 20:15 01/01/18 20:16 DC 01/01/18 20:35 25 MG Vital Signs/I&O 01/01/18 19:53 Temp 96.6 Pulse 90 Resp 9 B/P (MAP) 135/81 (99) Pulse Ox 97 O2 Delivery Room Air FSBG Bedside Testing Finger Stick Blood Glucose: 99 Progress Progress Note #1: Time: 20:19 Progress Note She could've hurt her neck from her coughing spells from her recent viral sounding illness and neck explain the paresthesias or she could be having atypical angina given her age. It's been persistent. Edwin going on for an hour so we would do a delta troponin and EKG area initial EKG is unremarkable. We'll get a 2 view chest x-ray to evaluate for possible pneumonia. There's also a possibility that her history of anxiety disorder with panic attacks could be explaining her perioral paresthesias. She has a completely normal neurologic exam head to toe with good deep tendon reflexes an NIH of 0. Stroke is thought to be fairly unlikely. Progress Note #2: Time: 21:46 Progress Note The patient's symptoms have nearly abated. We've given her Vistaril which she says helped her relax quite a bit and she would like to have a prescription for that. We'll give her some Tessalon Perles have her follow up outpatient with cardiology in the next couple days to consider any further workup necessary however seems that most of her symptoms could be associated with her recent cold. Initial ECG Impression Date: Jan 01, 2018 Initial ECG Impression Time: 20:06 Initial ECG Rate: 79 Initial ECG Rhythm: Normal Sinus Initial ECG Intervals: Normal Initial ECG Impression: Normal Initial ECG Comparisson: No Previous ECG Available Comment No ST elevation or depression. Diagnostic Imaging Diagonstic Imaging: Xray Plain Films/CT/US/NM/MRI: chest (2v) Comments NAME: RONDA RIVERA MED REC#: [id number] PHYSICIAN: PERLA ROUSSEAU MD CC: ANTONIO SHER; PERLA ROUSSEAU Page 1 of 1 RADIOLOGY REPORT [place], [place] CC: ANTONIO SHER; PERLA ROUSSEAU Page 1 of 1 RADIOLOGY REPORT NAME: RONDA RIVERA MED REC#: [id number] PT STATUS: REG ER : 1960 PHYSICIAN: PERLA ROUSSEAU MD ADMIT DATE: 01/01/18/ER Signed Date of Exam: 01/01/18 CHEST PA/LAT (2 VIEW) INDICATION: Facial numbness, weakness with cough FINDINGS: The lungs are clear. The heart and vessels normal. There is no effusion or pneumothorax. IMPRESSION: No acute appearing abnormality Dictated by: Dictated on workstation # [id number] Dict: 01/01/182033 Trans: 01/01/182037 Interpreted by: ANTONIO SHER Electronically signed by: ANTONIO SHER 01/01/182037 Reviewed: Reviewed by Me Departure Impression Primary Impression: Viral upper respiratory tract infection with cough Additional Impressions: Arm paresthesia, left Panic disorder without agoraphobia with mild panic attacks Disposition: 01 HOME, SELF-CARE Condition: Improved Departure-Patient Inst. Decision time for Depature: 21:48 Referrals: [facility] DO (PCP/Family) Primary Care Physician Patient Instructions: Acute Bronchitis, Adult (DC) Add. Discharge Instructions: You can use the Vistaril every 6 hours as needed for anxiety. You can call the claims supervisor in follow-up next couple days in his clinic at the above listed number. Use the Tessalon Perles every 6 hours as needed for cough. Return to the ER for chest pain, shortness of breath, other worrisome or new symptoms. Muscle rubs, massage, chiropractor or follow-up with the primary care doctor for continued or worsening neck pain or rib pain. Scripts Hydroxyzine Pamoate (Vistaril) 25 Mg Capsule 25 MG PO Q6H PRN for ANXIETY for 14 Days, #20 CAP 0 Refills Prov: PERLA ROUSSEAU 01/01/18 Benzonatate (Tessalon Perle) 100 Mg Capsule 100 MG PO Q6H PRN for COUGH for 7 Days, #20 CAP 0 Refills Prov: PERLA ROUSSEAU 01/01/18 Copy Copies To 1: [facility] DO; Jimena MCKEE MD, TITUS J Jan 01, 2018 20:16
--- NOTE | 2018-01-01 20:37 | Diagnostic Imaging Report ---
INDICATION: Facial numbness, weakness with cough FINDINGS: The lungs are clear. The heart and vessels normal. There is no effusion or pneumothorax. IMPRESSION: No acute appearing abnormality Dictated by: Dictated on workstation # [id number]
[2018-01-01 20:48] LABS: BASOPHILS % (AUTO) 0 % (0-10); EOSINOPHILS # (AUTO) 0.2 10^3/uL (0.0-0.3); EOSINOPHILS % (AUTO) 2 % (0-10); HEMATOCRIT 37 % (35-52); HEMOGLOBIN 13.1 G/DL (11.5-16.0); LYMPHOCYTES # (AUTO) 2.6 X 10^3 (1.0-4.0); LYMPHOCYTES % (AUTO) 29 % (12-44); MEAN CORPUSCULAR HEMOGLOBIN 31 PG (25-34); MEAN CORPUSCULAR HGB CONC 36 G/DL (32-36); MEAN CORPUSCULAR VOLUME 85 FL (80-99); MEAN PLATELET VOLUME 9.1 FL (7.4-10.4); MONOCYTES # (AUTO) 0.6 X 10^3 (0.0-1.0); MONOCYTES % (AUTO) 7 % (0-12); NEUTROPHILS # (AUTO) 5.6 X 10^3 (1.8-7.8); NEUTROPHILS % (AUTO) 62 % (42-75); PLATELET COUNT 262 10^3/uL (130-400); RED CELL DISTRIBUTION WIDTH 13.9 % (10.0-14.5)
[2018-01-01 20:58] LABS: PROTHROMBIN TIME PATIENT 12.8 SEC (12.2-14.7)
[2018-01-01 21:07] LABS: ALANINE AMINOTRANSFERASE 9 U/L (0-55); ALBUMIN 3.8 GM/DL (3.2-4.5); ALKALINE PHOSPHATASE 71 U/L (40-136); BILIRUBIN,TOTAL 0.5 MG/DL (0.1-1.0); BUN/CREATININE RATIO 12; CALCIUM 9.3 MG/DL (8.5-10.1); CARBON DIOXIDE 23 MMOL/L (21-32); CHLORIDE 103 MMOL/L (98-107); CREATININE SERUM 0.73 MG/DL (0.60-1.30); GFR ESTIMATED > 60; GLUCOSE 97 MG/DL (70-105); MAGNESIUM 2.2 MG/DL (1.8-2.4); POTASSIUM 4.1 MMOL/L (3.6-5.0); SODIUM 136 MMOL/L (135-145)
[2018-01-01 21:13] LABS: MYOGLOBIN SERUM 25.6 NG/ML (10.0-92.0)
[2018-01-01] MEDS ORDERED: HYDR25CA PO (21:50)
[2018-01-01] MEDS ORDERED: BENZ100C18 PO (21:50)
[2018-01-01 21:55] VITALS: BP 103/70
== END 2018-01-01 21:55 | disposition home or self-care (01) ==
LOC: EDUNIT# 19:53 → ER 19:55
DX: J06.9 Acute upper respiratory infection, unspecified (principal); R20.2 Paresthesia of skin; F41.0 Panic disorder [episodic paroxysmal anxiety]; F17.210 Nicotine dependence, cigarettes, uncomplicated; Z98.890 Other specified postprocedural states; Z98.51 Tubal ligation status; Z79.52 Long term (current) use of systemic steroids
CPT/HCPCS: 36415; 71046; 80053; 82962; 83735; 83874; 84484; 85025; 85610; 85730; 93005; 93041; 96360